=== PATIENT | female | born 1965 | race Caucasian/White ===

== ENCOUNTER 2022-01-27 01:41 | Emergency (ER) | payer MEDICAID ==
[2022-01-27 02:20] LABS: ANION GAP 14.9 mmol/L (5-15); CHLORIDE,CL 104 mmol/L (98-107); SODIUM,NA 141 mmol/L (136-145)
[2022-01-27 02:21] LABS: ESTIMATED GFR 86 mL/min (>=60)
== END 2022-01-27 02:35 ==
LOC: VM.ED 01:41 → MERGE 01:41 → VM.ED 02:35
DX: R07.89 Other chest pain (principal); F41.9 Anxiety disorder, unspecified; I10 Essential (primary) hypertension; F17.210 Nicotine dependence, cigarettes, uncomplicated; Z88.1 Allergy status to other antibiotic agents
CPT/HCPCS: 71046; 80053; 82550; 83615; 84484; 85025; 93010; 99284; 99285